=== PATIENT | male | born 1940 | race Caucasian/White ===

== ENCOUNTER → 2017-11-26 07:23 | Outpatient (CLI) | payer OTHER ==
[~2017-11-26 07:23] MED LIST: IRBESARTAN150 MG; LORAZEPAM0.5 MG; SERTRALINE HCL25 MG; SIMVASTATIN20 MG
== END | disposition home or self-care (01) ==
LOC: LAB 07:23
DX: I10 Essential (primary) hypertension (principal); M54.5 Low back pain; E03.8 Other specified hypothyroidism; E66.8 Other obesity; Z12.11 Encounter for screening for malignant neoplasm of colon

== ENCOUNTER → 2017-12-25 09:27 | Outpatient (CLI) | payer OTHER | END | disposition home or self-care (01) | LOC: LAB 09:27 | DX: R97.20 Elevated prostate specific antigen [PSA] (principal) ==

== ENCOUNTER 2018-02-26 07:00 | Outpatient (CLI) | payer OTHER | END 2018-02-26 07:10 | disposition home or self-care (01) | LOC: LAB 07:00 | DX: I10 Essential (primary) hypertension (principal); E11.9 Type 2 diabetes mellitus without complications; E55.9 Vitamin D deficiency, unspecified; E78.2 Mixed hyperlipidemia; M54.5 Low back pain; E03.8 Other specified hypothyroidism; E66.8 Other obesity; Z12.11 Encounter for screening for malignant neoplasm of colon ==

== ENCOUNTER 2018-03-04 10:20 | Outpatient (CLI) | payer OTHER ==
[~2018-03-04] VITALS: Ht 172.7 cm; Wt 72.6 kg
== END 2018-03-04 10:40 | disposition home or self-care (01) ==
LOC: OFIC 805 10:20
DX: H90.3 Sensorineural hearing loss, bilateral (principal); H61.23 Impacted cerumen, bilateral

== ENCOUNTER 2018-03-18 08:49 | Outpatient (CLI) | payer OTHER ==
[~2018-03-18] VITALS: Ht 152.4 cm; Wt 72.6 kg
== END 2018-03-18 09:10 | disposition home or self-care (01) ==
LOC: OFIC 805 08:49
DX: H61.23 Impacted cerumen, bilateral (principal); H90.3 Sensorineural hearing loss, bilateral

== ENCOUNTER 2018-06-25 07:40 | Outpatient (CLI) | payer OTHER | END 2018-06-25 07:45 | disposition home or self-care (01) | LOC: LAB 07:40 | DX: I10 Essential (primary) hypertension (principal); M54.5 Low back pain; E03.8 Other specified hypothyroidism; E66.8 Other obesity; Z12.11 Encounter for screening for malignant neoplasm of colon ==

== ENCOUNTER 2018-12-03 08:55 | Outpatient (CLI) | payer OTHER | END 2018-12-03 09:02 | disposition home or self-care (01) | LOC: LAB 08:55 | DX: I10 Essential (primary) hypertension (principal); M54.5 Low back pain; E03.8 Other specified hypothyroidism; E66.8 Other obesity; Z12.11 Encounter for screening for malignant neoplasm of colon ==

== ENCOUNTER 2019-03-11 06:42 | Outpatient (CLI) | payer OTHER | END 2019-03-11 07:06 | disposition home or self-care (01) | LOC: LAB 06:42 | DX: M54.5 Low back pain (principal); E03.8 Other specified hypothyroidism; E66.8 Other obesity; Z12.11 Encounter for screening for malignant neoplasm of colon; I11.9 Hypertensive heart disease without heart failure; E55.9 Vitamin D deficiency, unspecified; E78.49 Other hyperlipidemia; B02.29 Other postherpetic nervous system involvement; R97.20 Elevated prostate specific antigen [PSA] ==

== ENCOUNTER 2019-06-12 07:01 | Outpatient (CLI) | payer OTHER | END 2019-06-12 07:33 | disposition home or self-care (01) | LOC: LAB 07:01 | DX: E03.8 Other specified hypothyroidism (principal); M54.5 Low back pain; E66.8 Other obesity; Z12.11 Encounter for screening for malignant neoplasm of colon; I11.9 Hypertensive heart disease without heart failure; E55.9 Vitamin D deficiency, unspecified; E78.49 Other hyperlipidemia; B02.29 Other postherpetic nervous system involvement ==

== ENCOUNTER 2019-09-11 07:28 | Outpatient (CLI) | payer OTHER | END 2019-09-11 07:32 | disposition home or self-care (01) | LOC: LAB 07:28 | DX: D64.89 Other specified anemias (principal); N39.0 Urinary tract infection, site not specified; R10.84 Generalized abdominal pain; E03.8 Other specified hypothyroidism; E78.49 Other hyperlipidemia; R07.89 Other chest pain; E11.9 Type 2 diabetes mellitus without complications; Z13.6 Encounter for screening for cardiovascular disorders ==

== ENCOUNTER → 2019-12-16 07:23 | Outpatient (CLI) | payer OTHER | END | disposition home or self-care (01) | LOC: LAB 07:23 | DX: M54.5 Low back pain (principal); E03.8 Other specified hypothyroidism; E66.8 Other obesity; Z12.11 Encounter for screening for malignant neoplasm of colon; I11.9 Hypertensive heart disease without heart failure; E55.9 Vitamin D deficiency, unspecified; E78.49 Other hyperlipidemia; B02.29 Other postherpetic nervous system involvement ==

== ENCOUNTER 2020-04-03 07:34 | Outpatient (CLI) | payer OTHER | END 2020-04-03 07:38 | disposition home or self-care (01) | LOC: LAB 07:34 | DX: E78.49 Other hyperlipidemia (principal); D64.89 Other specified anemias; N39.0 Urinary tract infection, site not specified; R10.84 Generalized abdominal pain; E03.8 Other specified hypothyroidism; E11.9 Type 2 diabetes mellitus without complications ==

== ENCOUNTER → 2020-06-26 08:36 | Outpatient (CLI) | payer OTHER | END | disposition home or self-care (01) | LOC: LAB 08:36 | PROVIDERS: ATTEND Internal Medicine | DX: R97.20 Elevated prostate specific antigen [PSA] (principal); E03.8 Other specified hypothyroidism; M54.5 Low back pain; E66.8 Other obesity; Z12.11 Encounter for screening for malignant neoplasm of colon; I11.9 Hypertensive heart disease without heart failure; E55.9 Vitamin D deficiency, unspecified; B02.29 Other postherpetic nervous system involvement; E78.49 Other hyperlipidemia; Z68.26 Body mass index [BMI] 26.0-26.9, adult ==

== ENCOUNTER 2020-10-12 06:48 | Outpatient (CLI) | payer OTHER | END 2020-10-12 06:53 | disposition home or self-care (01) | LOC: LAB 06:48 | PROVIDERS: ATTEND Internal Medicine | DX: D64.89 Other specified anemias (principal); R10.84 Generalized abdominal pain; E03.8 Other specified hypothyroidism; E78.49 Other hyperlipidemia; E11.9 Type 2 diabetes mellitus without complications; I10 Essential (primary) hypertension; M54.5 Low back pain; E66.8 Other obesity; Z12.11 Encounter for screening for malignant neoplasm of colon; I11.9 Hypertensive heart disease without heart failure; E55.9 Vitamin D deficiency, unspecified; B02.29 Other postherpetic nervous system involvement; R97.20 Elevated prostate specific antigen [PSA]; Z68.26 Body mass index [BMI] 26.0-26.9, adult ==

== ENCOUNTER 2021-01-13 06:53 | Outpatient (CLI) | payer OTHER | END 2021-01-13 07:00 | disposition home or self-care (01) | LOC: LAB 06:53 | PROVIDERS: ATTEND Internal Medicine | DX: E03.8 Other specified hypothyroidism (principal); E66.8 Other obesity; Z12.11 Encounter for screening for malignant neoplasm of colon; I11.9 Hypertensive heart disease without heart failure; E55.9 Vitamin D deficiency, unspecified; B02.29 Other postherpetic nervous system involvement; E78.49 Other hyperlipidemia; R97.20 Elevated prostate specific antigen [PSA]; Z68.26 Body mass index [BMI] 26.0-26.9, adult; M54.5 Low back pain ==

== ENCOUNTER → 2021-04-19 | Outpatient (CLI) | payer OTHER | END | disposition home or self-care (01) | LOC: LAB 06:33 | PROVIDERS: ATTEND Internal Medicine | DX: M54.5 Low back pain (principal); Z12.11 Encounter for screening for malignant neoplasm of colon; E55.9 Vitamin D deficiency, unspecified; B02.29 Other postherpetic nervous system involvement; E78.5 Hyperlipidemia, unspecified; R97.20 Elevated prostate specific antigen [PSA]; F33.0 Major depressive disorder, recurrent, mild; F41.1 Generalized anxiety disorder; I10 Essential (primary) hypertension; Z68.26 Body mass index [BMI] 26.0-26.9, adult ==

== ENCOUNTER 2021-07-25 07:18 | Outpatient (CLI) | payer OTHER | END 2021-07-25 07:57 | disposition home or self-care (01) | LOC: LAB 07:18 | PROVIDERS: ATTEND Internal Medicine | DX: I10 Essential (primary) hypertension (principal); M54.5 Low back pain; E55.9 Vitamin D deficiency, unspecified; B02.29 Other postherpetic nervous system involvement; E78.49 Other hyperlipidemia; F33.0 Major depressive disorder, recurrent, mild; F41.1 Generalized anxiety disorder; Z68.26 Body mass index [BMI] 26.0-26.9, adult; Z12.11 Encounter for screening for malignant neoplasm of colon; D64.89 Other specified anemias; R10.84 Generalized abdominal pain; E03.8 Other specified hypothyroidism; E11.9 Type 2 diabetes mellitus without complications; Z13.6 Encounter for screening for cardiovascular disorders ==

== ENCOUNTER → 2021-09-09 10:44 | Outpatient (CLI) | payer OTHER | END | disposition home or self-care (01) | LOC: LAB 10:44 | PROVIDERS: ATTEND Internal Medicine Hematology & Oncology | DX: D69.8 Other specified hemorrhagic conditions (principal) ==

== ENCOUNTER 2021-09-16 07:20 | Outpatient (CLI) | payer OTHER | END 2021-09-16 07:27 | disposition home or self-care (01) | LOC: SONOGRAMA 07:20 | PROVIDERS: ATTEND Internal Medicine Hematology & Oncology | DX: K80.80 Other cholelithiasis without obstruction (principal); Q61.01 Congenital single renal cyst; D69.8 Other specified hemorrhagic conditions ==

== ENCOUNTER 2021-10-25 06:43 | Outpatient (CLI) | payer OTHER | END 2021-10-25 06:49 | disposition home or self-care (01) | LOC: LAB 06:43 | PROVIDERS: ATTEND Internal Medicine | DX: I10 Essential (primary) hypertension (principal); M54.59 Other low back pain; E55.9 Vitamin D deficiency, unspecified; B02.29 Other postherpetic nervous system involvement; E78.49 Other hyperlipidemia; F33.0 Major depressive disorder, recurrent, mild; F41.1 Generalized anxiety disorder; Z68.26 Body mass index [BMI] 26.0-26.9, adult; Z12.11 Encounter for screening for malignant neoplasm of colon; D64.89 Other specified anemias; N39.0 Urinary tract infection, site not specified; R10.84 Generalized abdominal pain; N40.0 Benign prostatic hyperplasia without lower urinary tract symptoms; R55 Syncope and collapse; I25.10 Atherosclerotic heart disease of native coronary artery without angina pectoris ==

== ENCOUNTER 2021-12-10 07:22 | Outpatient (CLI) | payer OTHER | END 2021-12-10 07:23 | disposition home or self-care (01) | LOC: LAB 07:22 | DX: D69.49 Other primary thrombocytopenia (principal) ==

== ENCOUNTER 2022-02-02 06:48 | Outpatient (CLI) | payer OTHER | END 2022-02-02 06:54 | disposition home or self-care (01) | LOC: LAB 06:48 | PROVIDERS: ATTEND Internal Medicine | DX: M54.50 Low back pain, unspecified (principal); E55.9 Vitamin D deficiency, unspecified; B02.29 Other postherpetic nervous system involvement; E78.5 Hyperlipidemia, unspecified; F33.0 Major depressive disorder, recurrent, mild; F41.1 Generalized anxiety disorder; I10 Essential (primary) hypertension; Z68.26 Body mass index [BMI] 26.0-26.9, adult; Z12.11 Encounter for screening for malignant neoplasm of colon; D64.9 Anemia, unspecified; R10.9 Unspecified abdominal pain ==

== ENCOUNTER → 2022-05-23 06:51 | Outpatient (CLI) | payer OTHER | END | disposition home or self-care (01) | LOC: LAB 06:51 | PROVIDERS: ATTEND Internal Medicine | DX: M54.50 Low back pain, unspecified (principal); E55.9 Vitamin D deficiency, unspecified; B02.29 Other postherpetic nervous system involvement; E78.5 Hyperlipidemia, unspecified; F33.0 Major depressive disorder, recurrent, mild; F41.1 Generalized anxiety disorder; I10 Essential (primary) hypertension; Z68.26 Body mass index [BMI] 26.0-26.9, adult; Z12.11 Encounter for screening for malignant neoplasm of colon ==

== ENCOUNTER 2023-01-25 07:12 | Outpatient (CLI) | payer OTHER | END 2023-01-25 07:17 | disposition home or self-care (01) | LOC: LAB 07:12 | PROVIDERS: ATTEND Internal Medicine | DX: M54.59 Other low back pain (principal); E55.9 Vitamin D deficiency, unspecified; B02.29 Other postherpetic nervous system involvement; E78.5 Hyperlipidemia, unspecified; F33.0 Major depressive disorder, recurrent, mild; F41.1 Generalized anxiety disorder; I10 Essential (primary) hypertension; Z68.26 Body mass index [BMI] 26.0-26.9, adult; Z12.11 Encounter for screening for malignant neoplasm of colon; R97.20 Elevated prostate specific antigen [PSA]; D64.9 Anemia, unspecified; R10.9 Unspecified abdominal pain; E11.9 Type 2 diabetes mellitus without complications; R73.09 Other abnormal glucose ==

== ENCOUNTER 2023-05-31 07:03 | Outpatient (CLI) | payer OTHER | END 2023-05-31 07:04 | disposition home or self-care (01) | LOC: LAB 07:03 | PROVIDERS: ATTEND Internal Medicine | DX: M54.50 Low back pain, unspecified (principal); E55.9 Vitamin D deficiency, unspecified; B02.29 Other postherpetic nervous system involvement; E78.5 Hyperlipidemia, unspecified; F33.0 Major depressive disorder, recurrent, mild; F41.1 Generalized anxiety disorder; I10 Essential (primary) hypertension; Z68.26 Body mass index [BMI] 26.0-26.9, adult; Z12.11 Encounter for screening for malignant neoplasm of colon ==

== ENCOUNTER 2023-12-06 07:50 | Outpatient (CLI) | payer OTHER ==
[2023-12-06 08:52] LABS: HEMATOCRIT 40.1 % (39.0-48.0); MEAN CELL VOLUME 89.1 fL (80.0-100.00); MEAN CORPUSCULAR HGB CONC 34.8 g/dl (32.0-36.0); RED CELL DISTRIBUTION WIDTH 13.5 % (11.5-14.5)
[2023-12-06 08:53] LABS: PLATELET COUNT 112 K/uL (150-450)
[2023-12-06 09:30] LABS: ALBUMIN 3.5 gm/dL (3.4-5.0); BILIRUBIN TOTAL 1.03 mg/dL (0.3-1.2); CALCIUM 8.7 mg/dL (8.5-10.1); CREATININE SERUM 0.82 mg/dL (0.70-1.30); GFR 90.17; GLOBULINA 3.3 G/DL (2.4-3.5); POTASSIUM 3.87 mEq/L (3.5-5.1); TOTAL PROTEIN 6.8 gm/dL (6.4-8.2)
== END 2023-12-06 13:57 | disposition home or self-care (01) ==
LOC: LAB 07:50
PROVIDERS: ATTEND Internal Medicine Cardiovascular Disease
DX: D64.9 Anemia, unspecified (principal); R10.9 Unspecified abdominal pain; E78.5 Hyperlipidemia, unspecified; E11.9 Type 2 diabetes mellitus without complications

== ENCOUNTER 2024-02-19 06:38 | Outpatient (CLI) | payer OTHER ==
[2024-02-19 07:34] LABS: HEMATOCRIT 41.7 % (39.0-48.0); HEMOGLOBIN 14.2 g/dL (13-16.00); MEAN CELL VOLUME 88.9 fL (80.0-100.00); MEAN CORPUSCULAR HEMOGLOBIN 30.4 pg (27.00-32.0); MEAN CORPUSCULAR HGB CONC 34.2 g/dl (32.0-36.0); RED BLOOD COUNT 4.68 M/uL (4.00-6.00); RED CELL DISTRIBUTION WIDTH 14.1 % (11.5-14.5); URINE APPEARANCE Clear; URINE BILIRRUBIN Negative (NEGATIVE); URINE BLOOD Negative; URINE COLOR Yellow; URINE GLUCOSE Negative (NEGATIVE); URINE LEUKOCYTE Negative; URINE NITRATE Negative; URINE PROTEIN Negative (NEGATIVE); URINE UROBILINOGEN 0.2 E.U./dl
[2024-02-19 07:36] LABS: PLATELET COUNT 115 K/uL (150-450)
[2024-02-19 07:42] LABS: URINE BACTERIA 3.7 uL (0.0-1933); URINE EPITHELIAL CELLS 0.9 uL (0.0-38.8); URINE RBC 1.2 uL (0.0-20.8); URINE WBC 1.6 uL (0.0-23.2)
[2024-02-19 08:09] LABS: ALBUMIN 3.6 gm/dL (3.4-5.0); BILIRUBIN TOTAL 1.13 mg/dL (0.3-1.2); CREATININE SERUM 0.95 mg/dL (0.70-1.30); GFR 76.09; GLOBULINA 3.6 G/DL (2.4-3.5); POTASSIUM 4.11 mEq/L (3.5-5.1); PROSTATIC SPECIFIC ANTIGEN 3.2 NG/ML (0.010-4.00); TOTAL PROTEIN 7.2 gm/dL (6.4-8.2); TSH 1.46 uIU/mL (0.358-3.74)
[2024-02-19 09:40] LABS: ob NEGATIVE (NEGATIVE)
== END 2024-02-19 06:40 | disposition home or self-care (01) ==
LOC: LAB 06:38
PROVIDERS: ATTEND Internal Medicine Cardiovascular Disease
DX: D64.9 Anemia, unspecified (principal); N39.0 Urinary tract infection, site not specified; R10.9 Unspecified abdominal pain; E03.9 Hypothyroidism, unspecified; E78.5 Hyperlipidemia, unspecified; E11.9 Type 2 diabetes mellitus without complications; M54.50 Low back pain, unspecified; E55.9 Vitamin D deficiency, unspecified; B02.29 Other postherpetic nervous system involvement; F33.0 Major depressive disorder, recurrent, mild; F41.1 Generalized anxiety disorder; I10 Essential (primary) hypertension; Z68.26 Body mass index [BMI] 26.0-26.9, adult; Z12.11 Encounter for screening for malignant neoplasm of colon

== ENCOUNTER → 2024-06-05 06:27 | Outpatient (CLI) | payer OTHER ==
[2024-06-05 09:11] LABS: RH POSITIVE
== END | disposition home or self-care (01) ==
LOC: LAB 06:27
PROVIDERS: ATTEND Internal Medicine
DX: E55.9 Vitamin D deficiency, unspecified (principal); B02.29 Other postherpetic nervous system involvement; E78.5 Hyperlipidemia, unspecified; I10 Essential (primary) hypertension; Z68.29 Body mass index [BMI] 29.0-29.9, adult; Z12.11 Encounter for screening for malignant neoplasm of colon; N41.0 Acute prostatitis

== ENCOUNTER 2024-06-07 07:35 | Outpatient (CLI) | payer OTHER ==
[2024-06-07 09:09] LABS: HEMATOCRIT 40.7 % (39.0-48.0); HEMOGLOBIN 14.4 g/dL (13-16.00); MEAN CELL VOLUME 89.1 fL (80.0-100.00); MEAN CORPUSCULAR HEMOGLOBIN 31.6 pg (27.00-32.0); MEAN CORPUSCULAR HGB CONC 35.5 g/dl (32.0-36.0); RED BLOOD COUNT 4.56 M/uL (4.00-6.00); RED CELL DISTRIBUTION WIDTH 12.7 % (11.5-14.5)
[2024-06-07 09:10] LABS: PLATELET COUNT 104 K/uL (150-450)
[2024-06-07 09:15] LABS: PH,URINE 6.5 (5.0-8.0); URINE APPEARANCE Clear; URINE BILIRRUBIN Negative (NEGATIVE); URINE BLOOD Negative; URINE COLOR Yellow; URINE GLUCOSE Negative (NEGATIVE); URINE LEUKOCYTE Negative; URINE NITRATE Negative; URINE PROTEIN Negative (NEGATIVE); URINE UROBILINOGEN 0.2 E.U./dl
[2024-06-07 09:35] LABS: URINE BACTERIA 2.5 uL (0.0-1933); URINE EPITHELIAL CELLS 0.6 uL (0.0-38.8); URINE RBC 1.6 uL (0.0-20.8); URINE WBC 0.7 uL (0.0-23.2)
[2024-06-07 10:01] LABS: ALBUMIN 3.8 gm/dL (3.4-5.0); BILIRUBIN TOTAL 1.24 mg/dL (0.3-1.2); CALCIUM 8.9 mg/dL (8.5-10.1); CREATININE SERUM 0.77 mg/dL (0.70-1.30); GFR 96.72; GLOBULINA 3.5 G/DL (2.4-3.5); POTASSIUM 3.92 mEq/L (3.5-5.1); TOTAL PROTEIN 7.3 gm/dL (6.4-8.2)
== END 2024-06-07 07:37 | disposition home or self-care (01) ==
LOC: LAB 07:35
PROVIDERS: ATTEND Internal Medicine
DX: M54.50 Low back pain, unspecified (principal); E55.9 Vitamin D deficiency, unspecified; E78.5 Hyperlipidemia, unspecified; B02.29 Other postherpetic nervous system involvement; F33.0 Major depressive disorder, recurrent, mild; F41.1 Generalized anxiety disorder; I10 Essential (primary) hypertension; Z68.26 Body mass index [BMI] 26.0-26.9, adult; Z12.11 Encounter for screening for malignant neoplasm of colon

== ENCOUNTER → 2024-09-18 06:48 | Outpatient (CLI) | payer OTHER ==
[2024-09-18 08:00] LABS: HEMATOCRIT 43.4 % (39.0-48.0); HEMOGLOBIN 14.9 g/dL (13-16.00); MEAN CELL VOLUME 90.5 fL (80.0-100.00); MEAN CORPUSCULAR HEMOGLOBIN 31.1 pg (27.00-32.0); MEAN CORPUSCULAR HGB CONC 34.4 g/dl (32.0-36.0); PLATELET COUNT 138 K/uL (150-450); RED BLOOD COUNT 4.79 M/uL (4.00-6.00); RED CELL DISTRIBUTION WIDTH 13.2 % (11.5-14.5)
[2024-09-18 09:10] LABS: ALBUMIN 3.7 gm/dL (3.4-5.0); BILIRUBIN TOTAL 0.98 mg/dL (0.3-1.2); CALCIUM 9.1 mg/dL (8.5-10.1); CREATININE SERUM 0.93 mg/dL (0.70-1.30); GFR 77.79; GLOBULINA 3.7 G/DL (2.4-3.5); POTASSIUM 4.17 mEq/L (3.5-5.1); TOTAL PROTEIN 7.4 gm/dL (6.4-8.2)
== END | disposition home or self-care (01) ==
LOC: LAB 06:48
PROVIDERS: ATTEND Internal Medicine Cardiovascular Disease
DX: D64.9 Anemia, unspecified (principal); R10.9 Unspecified abdominal pain; E78.5 Hyperlipidemia, unspecified; E11.9 Type 2 diabetes mellitus without complications; E78.2 Mixed hyperlipidemia

== ENCOUNTER 2024-12-18 07:00 | Outpatient (CLI) | payer OTHER ==
[2024-12-18 07:34] LABS: HEMATOCRIT 42.1 % (39.0-48.0); HEMOGLOBIN 14.4 g/dL (13-16.00); MEAN CELL VOLUME 90.1 fL (80.0-100.00); MEAN CORPUSCULAR HEMOGLOBIN 30.8 pg (27.00-32.0); MEAN CORPUSCULAR HGB CONC 34.1 g/dl (32.0-36.0); PLATELET COUNT 120 K/uL (150-450); RED BLOOD COUNT 4.67 M/uL (4.00-6.00); RED CELL DISTRIBUTION WIDTH 12.9 % (11.5-14.5)
[2024-12-18 07:36] LABS: URINE APPEARANCE Clear; URINE BILIRRUBIN Negative (NEGATIVE); URINE BLOOD Negative; URINE COLOR Yellow; URINE GLUCOSE Negative (NEGATIVE); URINE KETONE Negative (NEGATIVE); URINE LEUKOCYTE Negative; URINE NITRATE Negative; URINE PROTEIN Negative (NEGATIVE); URINE UROBILINOGEN 0.2 E.U./dl
[2024-12-18 07:39] LABS: URINE RBC 2.3 uL (0.0-20.8); URINE WBC 3.6 uL (0.0-23.2)
[2024-12-18 07:49] LABS: URINE BACTERIA 3.6 uL (0.0-1933); URINE CAST 0.14 uL (0.0-1.40)
[2024-12-18 08:30] LABS: ob NEGATIVE (NEGATIVE)
[2024-12-18 09:12] LABS: ALBUMIN 3.6 gm/dL (3.4-5.0); BILIRUBIN TOTAL 1.07 mg/dL (0.3-1.2); CALCIUM 9.1 mg/dL (8.5-10.1); CREATININE SERUM 0.9 mg/dL (0.70-1.30); GFR 80.79; GLOBULINA 3.2 G/DL (2.4-3.5); POTASSIUM 3.98 mEq/L (3.5-5.1); T4 TOTAL 9.97 UG/DL (4.5-12.1); TOTAL PROTEIN 6.8 gm/dL (6.4-8.2); TSH 1.64 uIU/mL (0.358-3.74)
[2024-12-18 09:19] LABS: PROSTATIC SPECIFIC ANTIGEN 3.3 NG/ML (0.010-4.00)
== END 2024-12-18 07:01 | disposition home or self-care (01) ==
LOC: LAB 07:00
PROVIDERS: ATTEND Internal Medicine
DX: E55.9 Vitamin D deficiency, unspecified (principal); B02.29 Other postherpetic nervous system involvement; E78.5 Hyperlipidemia, unspecified; I10 Essential (primary) hypertension; F33.9 Major depressive disorder, recurrent, unspecified; Z68.26 Body mass index [BMI] 26.0-26.9, adult; Z12.11 Encounter for screening for malignant neoplasm of colon; N41.0 Acute prostatitis

== ENCOUNTER 2025-01-29 10:16 | Outpatient (CLI) | payer OTHER | END 2025-01-29 10:22 | disposition home or self-care (01) | LOC: RAD 10:16 | PROVIDERS: ATTEND Ophthalmology | DX: I10 Essential (primary) hypertension (principal); Z01.811 Encounter for preprocedural respiratory examination ==

== ENCOUNTER 2025-01-30 07:07 | Outpatient (CLI) | payer OTHER ==
[2025-01-30 07:38] LABS: HEMATOCRIT 41.1 % (39.0-48.0); HEMOGLOBIN 14.4 g/dL (13-16.00); MEAN CELL VOLUME 89.4 fL (80.0-100.00); MEAN CORPUSCULAR HEMOGLOBIN 31.4 pg (27.00-32.0); MEAN CORPUSCULAR HGB CONC 35.1 g/dl (32.0-36.0); RED CELL DISTRIBUTION WIDTH 13.4 % (11.5-14.5)
[2025-01-30 07:42] LABS: PLATELET COUNT 126 K/uL (150-450)
[2025-01-30 08:00] LABS: INR 0.98; PARTIAL THROMBOPLASTIN TIME 29.6 SECONDS (22.0-34.0); PROTHROMBIN TIME 10.7 SECONDS (9.0-11.5)
[2025-01-30 08:57] LABS: ALBUMIN 3.7 gm/dL (3.4-5.0); BILIRUBIN TOTAL 1.07 mg/dL (0.3-1.2); CREATININE SERUM 0.91 mg/dL (0.70-1.30); GFR 79.76; GLOBULINA 3.4 G/DL (2.4-3.5); POTASSIUM 4.17 mEq/L (3.5-5.1); TOTAL PROTEIN 7.1 gm/dL (6.4-8.2)
== END 2025-01-30 07:11 | disposition home or self-care (01) ==
LOC: LAB 07:07
PROVIDERS: ATTEND Ophthalmology
DX: H25.013 Cortical age-related cataract, bilateral (principal); D68.8 Other specified coagulation defects

== ENCOUNTER 2025-03-17 06:25 | Outpatient (CLI) | payer OTHER ==
[2025-03-17 07:02] LABS: HEMATOCRIT 41.6 % (39.0-48.0); HEMOGLOBIN 14.2 g/dL (13-16.00); MEAN CELL VOLUME 90.6 fL (80.0-100.00); MEAN CORPUSCULAR HEMOGLOBIN 30.8 pg (27.00-32.0); RED BLOOD COUNT 4.59 M/uL (4.00-6.00); RED CELL DISTRIBUTION WIDTH 13.3 % (11.5-14.5)
[2025-03-17 07:03] LABS: PH,URINE 6.5 (5.0-8.0); URINE APPEARANCE Clear; URINE BILIRRUBIN Negative (NEGATIVE); URINE BLOOD Negative; URINE COLOR Yellow; URINE GLUCOSE Negative (NEGATIVE); URINE KETONE Negative (NEGATIVE); URINE LEUKOCYTE Negative; URINE NITRATE Negative; URINE PROTEIN Negative (NEGATIVE); URINE UROBILINOGEN 0.2 E.U./dl
[2025-03-17 07:04] LABS: URINE BACTERIA 6.1 uL (0.0-1933); URINE WBC 2.8 uL (0.0-23.2)
[2025-03-17 07:05] LABS: PLATELET COUNT 122 K/uL (150-450)
[2025-03-17 07:18] LABS: URINE EPITHELIAL CELLS 0.6 uL (0.0-38.8); URINE RBC 1.6 uL (0.0-20.8)
[2025-03-17 07:41] LABS: ALBUMIN 3.7 gm/dL (3.4-5.0); BILIRUBIN TOTAL 1.09 mg/dL (0.3-1.2); CALCIUM 9.3 mg/dL (8.5-10.1); CHOL HDL RATIO 2.3 (0-5.0); CREATININE SERUM 0.96 mg/dL (0.70-1.30); GFR 74.99; GLOBULINA 3.1 G/DL (2.4-3.5); POTASSIUM 4.18 mEq/L (3.5-5.1); TOTAL PROTEIN 6.8 gm/dL (6.4-8.2)
== END 2025-03-17 06:34 | disposition home or self-care (01) ==
LOC: LAB 06:25
PROVIDERS: ATTEND Internal Medicine
DX: D64.9 Anemia, unspecified (principal); R10.9 Unspecified abdominal pain; E78.5 Hyperlipidemia, unspecified; E11.9 Type 2 diabetes mellitus without complications; E78.2 Mixed hyperlipidemia; E55.9 Vitamin D deficiency, unspecified; B02.29 Other postherpetic nervous system involvement; I10 Essential (primary) hypertension; F33.9 Major depressive disorder, recurrent, unspecified; Z68.26 Body mass index [BMI] 26.0-26.9, adult; Z12.11 Encounter for screening for malignant neoplasm of colon; N41.0 Acute prostatitis

== ENCOUNTER 2025-06-16 06:21 | Outpatient (CLI) | payer OTHER ==
[2025-06-16 07:09] LABS: URINE APPEARANCE Clear; URINE BILIRRUBIN Negative (NEGATIVE); URINE BLOOD Negative; URINE COLOR Yellow; URINE GLUCOSE Negative (NEGATIVE); URINE KETONE Negative (NEGATIVE); URINE LEUKOCYTE Negative; URINE NITRATE Negative; URINE PROTEIN Negative (NEGATIVE); URINE UROBILINOGEN 0.2 E.U./dl
[2025-06-16 07:10] LABS: URINE BACTERIA 7.1 uL (0.0-1933); URINE RBC 3.3 uL (0.0-20.8)
[2025-06-16 07:14] LABS: BASO % 0.6 % (0.1-1.2); EOS # 0.12 (0.04-0.54); EOS % 2.3 % (0.7-7.0); LYMPH # 1.45 (1.18-3.74); LYMPH % 27.6 % (19.3-53.1); MEAN PLATELET VOLUME 11.50 fl (9.4-12.4); MONO # 0.38 (0.24-0.82); MONO % 7.2 % (4.7-12.5); NEUT # 3.27 (1.56-6.13); NEUT % 62.1 % (34.0-71.1); RED CELL DISTRIBUTION WIDTH 12.3 % (11.6-14.4); URINE CAST 0.00 uL (0.0-1.40); URINE EPITHELIAL CELLS 0.4 uL (0.0-38.8); URINE WBC 1.3 uL (0.0-23.2)
[2025-06-16 08:04] LABS: ALT/SGPT 26.0 U/L (12-78); AST/SGOT 15.0 U/L (15-37); BILIRUBIN TOTAL 0.97 mg/dL (0.3-1.2); BUN CREA RATIO 19.0 (7.0-25.0); CHOL HDL RATIO 2.0 (0-5.0); CREATININE SERUM 0.86 mg/dL (0.70-1.30); GFR 84.93; GLOBULINA 3.3 G/DL (2.4-3.5); GLUCOSE FASTING 109.0 mg/dL (65-100); HDL 65.0 mg/dl (40-60); LDL 53.0 mg/dl (0-130); OSMOLALITY SERUM 281.0 MOSM/KG (275-295); VLDL 9.0 (0-39)
== END 2025-06-16 06:24 | disposition home or self-care (01) ==
LOC: LAB 06:21
PROVIDERS: ATTEND Internal Medicine
DX: D69.6 Thrombocytopenia, unspecified (principal); N41.0 Acute prostatitis; I11.9 Hypertensive heart disease without heart failure; I10 Essential (primary) hypertension

== ENCOUNTER 2025-10-29 07:08 | Outpatient (CLI) | payer OTHER ==
[2025-10-29 07:45] LABS: BASO % 0.4 % (0.1-1.2); EOS # 0.18 (0.04-0.54); EOS % 3.3 % (0.7-7.0); LYMPH # 1.74 (1.18-3.74); LYMPH % 31.6 % (19.3-53.1); MEAN PLATELET VOLUME 11.50 fl (9.4-12.4); MONO # 0.53 (0.24-0.82); MONO % 9.6 % (4.7-12.5); NEUT # 3.02 (1.56-6.13); NEUT % 54.7 % (34.0-71.1); RED CELL DISTRIBUTION WIDTH 12.3 % (11.6-14.4)
[2025-10-29 07:47] LABS: URINE APPEARANCE Clear; URINE BILIRRUBIN Negative (NEGATIVE); URINE BLOOD Negative; URINE COLOR Yellow; URINE GLUCOSE Negative (NEGATIVE); URINE KETONE Negative (NEGATIVE); URINE LEUKOCYTE Negative; URINE NITRATE Negative; URINE PROTEIN Negative (NEGATIVE); URINE UROBILINOGEN 0.2 E.U./dl
[2025-10-29 07:49] LABS: URINE BACTERIA 8.0 uL (0.0-1933); URINE EPITHELIAL CELLS 1.9 uL (0.0-38.8); URINE RBC 5.0 uL (0.0-20.8); URINE WBC 3.0 uL (0.0-23.2)
[2025-10-29 08:01] LABS: URINE CAST 0.14 uL (0.0-1.40)
[2025-10-29 08:41] LABS: ALT/SGPT 23.0 U/L (12-78); AST/SGOT 16.0 U/L (15-37); BILIRUBIN TOTAL 1.19 mg/dL (0.3-1.2); BUN CREA RATIO 18.0 (7.0-25.0); CHOL HDL RATIO 1.9 (0-5.0); CREATININE SERUM 0.89 mg/dL (0.70-1.30); GFR 81.63; GLOBULINA 3.3 G/DL (2.4-3.5); GLUCOSE FASTING 111.0 mg/dL (65-100); HDL 66.0 mg/dl (40-60); LDL 50.0 mg/dl (0-130); OSMOLALITY SERUM 285.0 MOSM/KG (275-295); PROSTATIC SPECIFIC ANTIGEN 3.5 NG/ML (0.010-4.00); TSH 1.23 uIU/mL (0.358-3.74); VLDL 9.0 (0-39)
== END 2025-10-29 07:09 | disposition home or self-care (01) ==
LOC: LAB 07:08
PROVIDERS: ATTEND Internal Medicine
DX: E55.9 Vitamin D deficiency, unspecified (principal); B02.29 Other postherpetic nervous system involvement; E78.5 Hyperlipidemia, unspecified; I10 Essential (primary) hypertension; Z68.26 Body mass index [BMI] 26.0-26.9, adult; Z12.11 Encounter for screening for malignant neoplasm of colon; N41.0 Acute prostatitis; R97.20 Elevated prostate specific antigen [PSA]; D64.9 Anemia, unspecified; N39.0 Urinary tract infection, site not specified; R10.9 Unspecified abdominal pain; E03.9 Hypothyroidism, unspecified; E11.9 Type 2 diabetes mellitus without complications